=== PATIENT | male | born 1965 ===

== ENCOUNTER 2016-07-12 16:31 | Emergency (ER) | payer MEDICAID ==
[~2016-07-12 16:31] MED LIST: ACCOLATE20 MG PO; ADVAIR 2501 DISK W/D; ADVAIR 50028 BLISTER INH; ASTEPRO30 M1 NS; CLARITIN10 MG PO; DELTASONE10 MG PO; FLONASE16 GM NS; MOTRIN600 MG PO; PREDNISONE10 MG PO; PREDNISONE20 MG PO; PRILOSEC20 MG PO; PROVENTIL17 G; QVAR7.3 G IH; SINGULAIR10 MG; SKELAXIN400 MG; VICODIN 5/500 T1 TAB PO
[2016-07-12] MEDS ORDERED: CYMBALTA60 M1 PO (16:47)
[2016-07-12] MEDS ORDERED: SPIRIVA18 MC1 INH (16:47)
[2016-07-12] MEDS ORDERED: ADVAIR 50028 BLISTE1 INH (16:47)
[2016-07-12] MEDS ORDERED: NEURONTIN400 M1 PO (16:49)
[2016-07-12] MEDS ORDERED: OLANZAPINE10 M1 PO ×3 (16:49→17:29)
[2016-07-12] MEDS ORDERED: CLARITIN10 M6 PO (16:49)
[2016-07-12] MEDS ORDERED: REMERON15 M1 PO (16:49)
[2016-07-12] MEDS ORDERED: PATANASE30.5 G1 (16:50)
[2016-07-12] MEDS ORDERED: OMEPRAZOLE20 M3 PO (16:51)
[2016-07-12] MEDS ORDERED: BUSPIRONE HCL10 M2 PO (16:51)
[2016-07-12] MEDS ORDERED: QVAR8.7 G1 INH (16:51)
[2016-07-12] MEDS ORDERED: SINGULAIR10 M1 PO (16:51)
[2016-07-12] MEDS ORDERED: NASONEX17 G1 (16:52)
[2016-07-12] MEDS ORDERED: AMBIEN10 M1 PO (16:52)
[2016-07-12] MEDS ORDERED: PATADAY2.5 M1 OP (16:52)
[2016-07-12] MEDS ORDERED: ALPRAZOLAM1 M3 PO (16:52)
[2016-07-12] MEDS ORDERED: ALBUTEROL2.5 MG/3 M INH (17:28)
== END 2016-07-12 18:26 ==
LOC: EDMED 16:31
DX: R07.89 Other chest pain (principal); J40 Bronchitis, not specified as acute or chronic